=== PATIENT | male | born 1985 | race Hispanic/Latino ===

== ENCOUNTER 2020-08-24 11:41 | Emergency (ER) | payer BC ==
[2020-08-24] MEDS ORDERED: IPRATROPIUM/ALBUTEROL SULFATE 3 ML SOLUTION IH ONE ×3 (12:02→12:24)
[2020-08-24 12:08] LABS: BASOPHILS % (AUTO) 0.2 % (0.0-5.0); EOSINOPHILS % (AUTO) 5.1 % (0.0-8.0); HEMATOCRIT 43.5 % (42-54); LYMPHOCYTES % (AUTO) 12.1 % (21.0-51.0); MEAN CORPUSCULAR HGB CONC 32.9 g/dL (32.0-36.0); MEAN CORPUSCULAR VOLUME 94.2 fL (79-99); NEUTROPHILS % (AUTO) 75.2 % (40.0-77.0); PLATELET COUNT (AUTO) 251 K/uL (130-400); RED BLOOD CELL COUNT(AUTO) 4.62 MIL/uL (4.50-6.20); RED CELL DISTRIBUTION WIDTH 13.4 % (11.0-15.5); WHITE BLOOD COUNT (AUTO) 11.2 K/uL (4.8-10.8)
[2020-08-24 12:15] LABS: CREATININE 1.1 mg/dL (0.5-1.5); POTASSIUM 3.9 mmol/L (3.5-5.1)
[2020-08-24 12:20] LABS: ALBUMIN 3.9 g/dL (3.5-5.0); BILIRUBIN,TOTAL 0.4 mg/dL (0.2-1.0)
[2020-08-24] MEDS ORDERED: ALBUTEROL SULFATE 0.083% 2.5 MG/3 ML INH IH ONE (12:21)
[2020-08-24 12:24] LABS: INR 0.92 (0.85-1.15)
[2020-08-24] MEDS ORDERED: METHYLPREDNISOLONE SOD SUCC 125MG/2ML VIAL ONE (12:31)
== END 2020-08-24 14:37 | disposition home or self-care (01) ==
LOC: EDBD 11:41 → EDH 11:41
DX: J45.21 Mild intermittent asthma with (acute) exacerbation (principal); Z20.828 Contact with and (suspected) exposure to other viral communicable diseases; Z72.0 Tobacco use
CPT/HCPCS: 36415; 71045; 80053; 85025; 85610; 85730; 87426; 94640 ×3; 96374; 99285; J2930; U0003

== ENCOUNTER 2021-01-05 04:03 | Emergency (ER) | payer BC ==
[2021-01-05 05:36] LABS: BASOPHILS % (AUTO) 0.2 % (0.0-5.0); EOSINOPHILS % (AUTO) 0.3 % (0.0-8.0); HEMATOCRIT 41.2 % (42-54); LYMPHOCYTES % (AUTO) 14.8 % (21.0-51.0); MEAN CORPUSCULAR HEMOGLOBIN 30.9 pg (27.0-33.0); MEAN CORPUSCULAR HGB CONC 34.2 g/dL (32.0-36.0); MEAN CORPUSCULAR VOLUME 90.4 fL (79-99); MONOCYTES % (AUTO) 9.6 % (3.0-13.0); NEUTROPHILS % (AUTO) 74.8 % (40.0-77.0); PLATELET COUNT (AUTO) 274 K/uL (130-400); RED BLOOD CELL COUNT(AUTO) 4.56 MIL/uL (4.50-6.20); RED CELL DISTRIBUTION WIDTH 13.3 % (11.0-15.5); WHITE BLOOD COUNT (AUTO) 12.2 K/uL (4.8-10.8)
[2021-01-05 05:43] LABS: CREATININE 1.1 mg/dL (0.5-1.5); POTASSIUM 3.8 mmol/L (3.5-5.1)
[2021-01-05 05:47] LABS: BILIRUBIN,TOTAL 0.7 mg/dL (0.2-1.0); TOTAL PROTEIN, SERUM 8.3 g/dL (6.0-8.3)
[2021-01-05] MEDS ORDERED: KETOROLAC TROMETHAMINE 60 MG/2 ML VIAL ONE (06:48)
== END 2021-01-05 07:18 | disposition home or self-care (01) ==
LOC: EDH 04:03
DX: S13.4XXA Sprain of ligaments of cervical spine, initial encounter (principal); J45.909 Unspecified asthma, uncomplicated; Z72.0 Tobacco use; X58.XXXA Exposure to other specified factors, initial encounter; Y93.89 Activity, other specified; Y92.89 Other specified places as the place of occurrence of the external cause; Y99.8 Other external cause status
CPT/HCPCS: 36415; 70450; 72125; 80053; 85025; 96372; 99285; J1885

== ENCOUNTER 2021-03-04 12:58 | Emergency (ER) | payer BC ==
[~2021-03-04] VITALS: Ht 188 cm; Wt 93.0 kg
[2021-03-04 13:00] VITALS: BP 136/80
[2021-03-04] MEDS ORDERED: SOLU-MEDROL 125MG/2ML VIAL IM ONE (13:15)
[2021-03-04] MEDS: ALBUTEROL SULFATE 0.083% 2.5 MG/3 ML INH IH ONE ×2 (13:31→14:02)
[2021-03-04] MEDS ORDERED: MONT10TA21 PO (14:04)
[2021-03-04] MEDS ORDERED: ALBU1.252 IH (14:04)
[2021-03-04] MEDS ORDERED: ALBU18HF7 IH (14:06)
[2021-03-04] MEDS ORDERED: PRED20TA3 PO (14:11)
== END 2021-03-04 14:13 | disposition home or self-care (01) ==
LOC: EDH 12:58
DX: J45.901 Unspecified asthma with (acute) exacerbation (principal); Z79.899 Other long term (current) drug therapy
CPT/HCPCS: 94640; 96372; 99284; J2930

== ENCOUNTER 2021-04-23 15:17 | Emergency (ER) | payer BC ==
[~2021-04-23] VITALS: Ht 188 cm; Wt 93.4 kg
[~2021-04-23 15:17] MED LIST: ALBU1.252 IH; ALBU18HF7 IH; MONT10TA21 PO; PRED20TA3 PO
[2021-04-23] MEDS ORDERED: DEXAMETHASONE SOD PHOSPHATE 4 MG/ML 1ML VIAL ONE (18:05)
[2021-04-23] MEDS ORDERED: IPRATROPIUM/ALBUTEROL SULFATE 3 ML SOLUTION IH SCH (18:30)
[2021-04-23] MEDS ORDERED: DEXAMETHASONE SOD PHOSPHATE 4 MG/ML 1ML VIAL IM SCH (18:30)
[2021-04-23] MEDS ORDERED: IPRATROPIUM/ALBUTEROL SULFATE 3 ML SOLUTION IH ONE (18:32)
[2021-04-23 18:41] VITALS: BP 135/78
[2021-04-23] MEDS ORDERED: PRED20TA3 PO (19:17)
[2021-04-23] MEDS ORDERED: ALBU90AE2 IH (19:17)
== END 2021-04-23 19:33 | disposition home or self-care (01) ==
LOC: EDH 15:17
DX: J45.909 Unspecified asthma, uncomplicated (principal); Z79.899 Other long term (current) drug therapy
CPT/HCPCS: 94640 ×3; 96372; 99285; J1100